=== PATIENT | female | born 1975 | race Caucasian/White ===

== ENCOUNTER → 2020-11-24 | Outpatient (CLI) | payer BC ==
[~2020-11-24] MED LIST: INSU100C9 SC
[2020-11-24 09:20] LABS: BASOPHILS % (AUTO) 1 % (0-1); EOSINOPHILS % (AUTO) 3 % (1-7); LYMPHOCYTES % (AUTO) 36 % (22-44); MEAN CORPUSCULAR HEMOGLOBIN 32.4 pg (27.0-34.8); MEAN CORPUSCULAR HGB CONC 33.9 g/dL (32.4-35.8); MEAN PLATELET VOLUME 7.7 fL (7.4-10.4); MONOCYTES % (AUTO) 11 % (2-9); NEUTROPHILS % (AUTO) 50 % (42-75); PLATELET COUNT 302 x10^3/uL (130-400); RED BLOOD COUNT 4.29 x10^6/uL (3.82-5.3); RED CELL DISTRIBUTION WIDTH 13.3 % (9.6-15.2)
[2020-11-24 09:25] LABS: MD NO
[2020-11-24 09:27] LABS: MICROSCOPIC NOT IND
[2020-11-24 09:32] LABS: CHLORIDE 107 mmol/L (98-107)
[2020-11-24 09:38] LABS: ALANINE AMINOTRANSFERASE 20 U/L (12-78); ALBUMIN 4.1 g/dL (3.4-5.0); ALKALINE PHOSPHATASE 67 U/L (45-117); ANION GAP 5 mmol/L (5-15); BILIRUBIN,TOTAL 0.5 mg/dL (0.2-1.0); CALCIUM 8.7 mg/dL (8.5-10.1); CREATININE 0.79 mg/dL (0.55-1.02); TOTAL PROTEIN 7.2 g/dL (6.4-8.2)
== END | disposition home or self-care (01) ==
LOC: STAR 08:14
PROVIDERS: ATTEND Obstetrics & Gynecology
DX: Z01.812 Encounter for preprocedural laboratory examination (principal); Z20.822 Contact with and (suspected) exposure to COVID-19; D25.9 Leiomyoma of uterus, unspecified
CPT/HCPCS: 36415; 80053; 81003; 81025; 83036; 85025; 93005; U0003

== ENCOUNTER 2020-11-30 07:48 | Day surgery (SDC) | payer BC ==
[~2020-11-30] VITALS: Ht 162.6 cm; Wt 59.1 kg
[2020-11-30 08:27] VITALS: BP 143/87
[2020-11-30] MEDS ORDERED: FENTANYL PF 100 MCG/2ML IV PRN (08:30)
[2020-11-30] MEDS ORDERED: OXYcodone 5 MG/5 ML ORAL.SOL UDC PO PRN (08:30)
[2020-11-30] MEDS ORDERED: HYDROmorphone 1 MG/ML, 1ML INJ IVPush PRN (08:30)
[2020-11-30] MEDS ORDERED: ONDANSETRON 2MG/ML, 2ML IVPush ONE (08:30)
[2020-11-30] MEDS ORDERED: ACETAMINOPHEN 500 MG TABLET PO ONE (08:30)
[2020-11-30] MEDS ORDERED: ONDANSETRON 2MG/ML, 2ML IVPush PRN (08:30)
[2020-11-30] MEDS ORDERED: MEPERIDINE/PF 25MG/0.5ML IVPush PRN (08:30)
[2020-11-30] MEDS ORDERED: PROMETHAZINE 25 MG/ML, 1ML IVPush PRN (08:30)
[2020-11-30 08:43] LABS: HCG UR SG 1.024 (1.003-1.030)
[2020-11-30] MEDS ORDERED: LACTATED RINGERS 1,000 ML IV SCH (09:00)
[2020-11-30] MEDS ORDERED: CHLORHEXIDINE 15 ML UDC PO ONE (09:00)
[2020-11-30] MEDS ORDERED: MIDAZOLAM 1 MG/ML, 2ML ONE (09:30)
[2020-11-30] MEDS ORDERED: FENTANYL PF 100 MCG/2ML ONE ×2 (09:30→10:58)
[2020-11-30] MEDS ORDERED: ROCURONIUM 10MG/ML,5ML ONE (09:33)
[2020-11-30] MEDS ORDERED: ONDANSETRON 2MG/ML, 2ML ONE (09:33)
[2020-11-30] MEDS ORDERED: GLYCOPYRROLATE 0.2MG/1ML, 5ML ONE (09:33)
[2020-11-30] MEDS ORDERED: NEOSTIGMINE 1 MG/ML, 10ML ONE (09:33)
[2020-11-30] MEDS ORDERED: CEFAZOLIN 1,000 MG ONE (09:33)
[2020-11-30] MEDS ORDERED: PROPOFOL 10 MG/ML, 20ML ONE (09:33)
[2020-11-30] MEDS ORDERED: SUCCINYLCHOLINE 20 MG/ML, 10ML ONE (09:33)
[2020-11-30] MEDS ORDERED: BUPIVACAINE/PF 0.25% ONE (10:01)
[2020-11-30] MEDS ORDERED: FLUORESCEIN SODIUM 500 MG/5 ML ONE (10:01)
[2020-11-30] MEDS ORDERED: KETOROLAC 30 MG/1 ML ONE (12:22)
[2020-11-30] MEDS ORDERED: MEPERIDINE/PF 25MG/ML,1ML ONE (12:41)
[2020-11-30] MEDS ORDERED: OXYcodone 5 MG/5 ML ORAL.SOL UDC ONE (12:41)
[2020-11-30] MEDS ORDERED: KETOROLAC 30 MG/1 ML IVPush PRN (13:00)
== END 2020-11-30 14:50 | disposition home or self-care (01) ==
LOC: OUT 07:48
PROVIDERS: ATTEND Obstetrics & Gynecology
DX: D25.1 Intramural leiomyoma of uterus (principal); N92.0 Excessive and frequent menstruation with regular cycle; N94.6 Dysmenorrhea, unspecified; N85.8 Other specified noninflammatory disorders of uterus; N73.6 Female pelvic peritoneal adhesions (postinfective); E10.9 Type 1 diabetes mellitus without complications; Z79.899 Other long term (current) drug therapy; Z88.5 Allergy status to narcotic agent; Z98.51 Tubal ligation status
CPT/HCPCS: 36415; 58554; 81025; 82962; 86850; 86900; 88307; J0330; J0690; J1885; J2175; J2250; J2405; J2704; J2710; J3010